=== PATIENT | female | born 1995 | race Hispanic/Latino ===

== ENCOUNTER 2019-03-23 14:03 | Emergency (ER) | payer BC ==
[~2019-03-23] VITALS: Ht 149.9 cm; Wt 61.2 kg
[2019-03-23 15:03] LABS: BILIRUBIN,URINE NEGATIVE (NEGATIVE); CLARITY,URINE SL CLOUDY (CLEAR); COLOR,URINE YELLOW (YELLOW); KETONES,URINE TRACE (NEGATIVE); LEUKOCYTE ESTERASE ,URINE NEGATIVE (NEGATIVE); NITRITE,URINE NEGATIVE (NEGATIVE); PROTEIN,URINE DIPSTICK NEGATIVE (NEGATIVE); URINE UROBILINOGEN 0.2 mg/dL (0.2 - 1)
[2019-03-23 15:05] LABS: PREGNANCY TEST, URINE NEGATIVE (NEGATIVE)
[2019-03-23 15:22] LABS: BACTERIA,URINE MODERATE /HPF; WBC,URINE (MAN) 0-5 /HPF (0-5)
[2019-03-23 15:23] LABS: EPITHELIAL CELLS,URINE MODERATE /LPF
[2019-03-23 16:24] VITALS: BP 118/77
== END 2019-03-23 15:30 | disposition home or self-care (01) ==
LOC: ER 14:03
DX: R10.30 Lower abdominal pain, unspecified (principal); N93.8 Other specified abnormal uterine and vaginal bleeding
CPT/HCPCS: 81001; 81025; 99283

== ENCOUNTER 2020-04-16 10:09 | Emergency (ER) | payer BC ==
[~2020-04-16] VITALS: Ht 157.5 cm; Wt 59.0 kg
[2020-04-16 10:34] LABS: BASOPHILS % 0.4 % (0.0-1.0); EOSINOPHILS # (AUTO) 0.1 (0.0-0.4); EOSINOPHILS % 0.7 % (0.0-6.0); HEMATOCRIT 40.3 % (34.2-44.1); HEMOGLOBIN 12.8 g/dL (12.0-16.0); LYMPHOCYTES % 10.5 % (18.0-39.1); MEAN CORPUSCULAR HEMOGLOBIN 28.4 pg (28-32); MEAN CORPUSCULAR HGB CONC 31.8 g/dL (31-35); MEAN CORPUSCULAR VOLUME 89.6 fL (81-99); MONOCYTES # (AUTO) 0.6 (0.2-0.8); MONOCYTES % 5.5 % (4.4-11.3); NEUTROPHILS # (AUTO) 8.2 (2.1-6.9); NEUTROPHILS % 82.4 % (38.7-80.0); PLATELET COUNT 374 x10e3/uL (140-360); RED CELL DISTRIBUTION WIDTH 13.4 % (11.7-14.4)
[2020-04-16 10:35] LABS: CLARITY,URINE CLOUDY (CLEAR); COLOR,URINE RED (YELLOW); LEUKOCYTE ESTERASE ,URINE LARGE (NEGATIVE); NITRITE,URINE POSITIVE (NEGATIVE)
[2020-04-16 10:36] LABS: BILIRUBIN,URINE LARGE (NEGATIVE); KETONES,URINE 1+ (NEGATIVE); PROTEIN,URINE DIPSTICK >=300 (NEGATIVE); URINE UROBILINOGEN 1 mg/dL (0.2 - 1)
[2020-04-16] MEDS ORDERED: SODIUM CHLORIDE 0.9% 1000ML 1,000 ML IV STA (10:36)
[2020-04-16] MEDS ORDERED: KETOROLAC TROMETHAMINE 30 MG/ML VIAL IV STA (10:36)
[2020-04-16 10:37] LABS: PREGNANCY TEST, URINE NEGATIVE (NEGATIVE)
[2020-04-16 10:49] LABS: ALANINE AMINOTRANSFERASE 9 IU/L (0-55); ALBUMIN 4.7 g/dL (3.5-5.0); ALBUMIN/GLOBULIN RATIO 1.5 (0.8-2.0); ALKALINE PHOSPHATASE 80 IU/L (40-150); ANION GAP 12.6 mmol/L (8-16); BLOOD UREA NITROGEN 8 mg/dL (7-26); BUN/CREATININE RATIO 10 (6-25); CALCIUM 9.3 mg/dL (8.4-10.2); CARBON DIOXIDE 27 mmol/L (22-29); CHLORIDE 105 mmol/L (98-107); CREATININE, SERUM 0.77 mg/dL (0.57-1.11); EST GLOMERULAR FILTRATION RATE > 60 ML/MIN (60-); GLUCOSE 112 mg/dL (74-118); POTASSIUM 3.6 mmol/L (3.5-5.1); SODIUM 141 mmol/L (136-145)
[2020-04-16 10:51] LABS: WBC,URINE (MAN) >50 /HPF (0-5)
[2020-04-16 10:52] LABS: BACTERIA,URINE FEW /HPF; EPITHELIAL CELLS,URINE FEW /LPF; RBC,URINE >50 /HPF (0-5)
[2020-04-16] MEDS ORDERED: CEFTRIAXONE SOD 1 GM/NS 50 ML 50 ML IV ONE ×2 (11:30→11:42)
== END 2020-04-16 13:04 | disposition home or self-care (01) ==
LOC: ER 10:14
DX: N12 Tubulo-interstitial nephritis, not specified as acute or chronic (principal); N39.0 Urinary tract infection, site not specified; M54.5 Low back pain; R31.9 Hematuria, unspecified; R30.0 Dysuria; J45.909 Unspecified asthma, uncomplicated
CPT/HCPCS: 36415; 74176; 80053; 81001; 81025; 85025; 87086; 99284; J0696; J1885; J7030

== ENCOUNTER 2020-07-05 17:53 | Emergency (ER) | payer BC ==
[~2020-07-05] VITALS: Ht 157.5 cm; Wt 59.0 kg
== END 2020-07-05 20:00 | disposition home or self-care (01) ==
LOC: ER 18:34
DX: S02.2XXA Fracture of nasal bones, initial encounter for closed fracture (principal); S02.40DA Maxillary fracture, left side, initial encounter for closed fracture; Y04.0XXA Assault by unarmed brawl or fight, initial encounter; Y92.830 Public park as the place of occurrence of the external cause; J45.909 Unspecified asthma, uncomplicated
CPT/HCPCS: 70486; 99283

== ENCOUNTER 2020-08-24 18:54 | Emergency (ER) | payer BC ==
[~2020-08-24] VITALS: Ht 157.5 cm; Wt 59.0 kg
[2020-08-24 19:28] LABS: CLARITY,URINE TURBID (CLEAR); COLOR,URINE RED (YELLOW); LEUKOCYTE ESTERASE ,URINE SMALL (NEGATIVE); NITRITE,URINE NEGATIVE (NEGATIVE)
[2020-08-24 19:29] LABS: KETONES,URINE TRACE (NEGATIVE); PROTEIN,URINE DIPSTICK >=300 (NEGATIVE); URINE UROBILINOGEN 1 mg/dL (0.2 - 1)
[2020-08-24 19:42] LABS: BACTERIA,URINE FEW /HPF; RBC,URINE >50 /HPF (0-5)
== END 2020-08-24 20:15 | disposition home or self-care (01) ==
LOC: ER 19:01
DX: R30.0 Dysuria (principal); N39.0 Urinary tract infection, site not specified; M54.5 Low back pain; R10.30 Lower abdominal pain, unspecified; J45.909 Unspecified asthma, uncomplicated; Z87.442 Personal history of urinary calculi
CPT/HCPCS: 81001; 81025; 99283